=== PATIENT | female | born 1980 ===

== ENCOUNTER 2019-06-16 13:57 | Emergency (ER) | payer BC ==
[~2019-06-16] VITALS: Ht 162.6 cm; Wt 59.0 kg
[~2019-06-16 13:57] MED LIST: ADAL40PEN; AZAT50; EMGALITY120 MG/1 M
== END 2019-06-16 16:12 | disposition home or self-care (01) ==
LOC: ER 13:57
DX: S69.92XA Unspecified injury of left wrist, hand and finger(s), initial encounter (principal); Z88.2 Allergy status to sulfonamides; X58.XXXA Exposure to other specified factors, initial encounter
CPT/HCPCS: 73130; 99283-25